=== PATIENT | female | born 1980 | race African-American/Black ===

== ENCOUNTER 2018-05-03 12:36 | Emergency (ER) | payer MEDICAID, OTHER ==
[~2018-05-03] VITALS: Ht 167.6 cm; Wt 85.0 kg
[2018-05-03] MEDS ORDERED: SODIUM CHLORIDE 0.9% 1,000 ML IV ONE (13:11)
[2018-05-03 14:50] LABS: BASOPHILS % 0.6 % (0.0-2.0); HEMATOCRIT. 39.2 % (36.0-48.0); HEMOGLOBIN. 12.9 g/dL (12.0-16.0); LYMPHOCYTES % 14.2 % (20.0-50.0); MEAN CORPUSCULAR HEMOGLOBIN 29.5 pg (28.0-32.0); MEAN CORPUSCULAR VOLUME 89.7 fL (81.0-99.0); MEAN PLATELET VOLUME 10.7 fl (7.4-10.4); MONOCYTES % 12.7 % (2.0-8.0); NEUTROPHILS % 72.5 % (40.0-76.0); PLATELET 208 x1000/uL (130-400); RED BLOOD CELL COUNT 4.37 mill/uL (4.2-5.4); RED CELL DISTRIBUTION WIDTH 15.3 % (11.6-14.6)
[2018-05-03 14:54] LABS: CHLORIDE 104 mEq/L (98-107)
[2018-05-03 15:08] LABS: HCG SCREEN NEGATIVE
[2018-05-03 15:15] LABS: CLARITY URINE CLOUDY (CLEAR); COLOR URINE YELLOW (YELLOW); KETONES URINE NEGATIVE (NEGATIVE); LEUKOCYTE ESTERASE URINE 3+ (NEGATIVE); NITRITE URINE NEGATIVE (NEGATIVE); OCCULT BLOOD URINE NEGATIVE (NEGATIVE); PROTEIN URINE NEGATIVE (NEGATIVE); SPECIFIC GRAVITY URINE 1.006 (1.005-1.030); UROBILINOGEN URINE 0.2 E.U./dL (0.2-1.0)
[2018-05-03] MEDS ORDERED: CEFTRIAXONE 2 G PREMIX 50 ML IV NR (15:45)
[2018-05-03] MEDS ORDERED: POTASSIUM CHLORIDE 20MEQ TABLET SR PO NR (15:45)
[2018-05-03 18:07] VITALS: BP 136/83
== END 2018-05-03 18:09 | disposition home or self-care (01) ==
LOC: ER 12:54
DX: N39.0 Urinary tract infection, site not specified (principal); E86.0 Dehydration; R55 Syncope and collapse; R11.2 Nausea with vomiting, unspecified
CPT/HCPCS: 36415; 71045; 80053; 81003; 81025; 84703; 85025; 93005; 96361; 96365; 99284; J0696; J7030

== ENCOUNTER 2025-04-21 13:15 | Inpatient (IN) | payer OTHER ==
[~2025-04-21] VITALS: Ht 162.6 cm; Wt 95.3 kg
[2025-04-21 13:37] VITALS: O2SAT 99
[2025-04-21 14:14] LABS: HEMATOCRIT. 38.2 % (36.0-48.0); HEMOGLOBIN. 12.3 g/dL (12.0-16.0); MEAN PLATELET VOLUME 11.0 fl (7.4-10.4); PLATELET 253 x1000/uL (130-400); RED BLOOD CELL COUNT 4.35 mill/uL (4.2-5.4); RED CELL DISTRIBUTION WIDTH 15.7 % (11.6-14.6)
[2025-04-21 14:28] LABS: HCG SCREEN NEGATIVE
[2025-04-21 14:32] LABS: CREATININE 0.9 mg/dL (0.6-1.0); UREA NITROGEN BLOOD 8 mg/dL (9-23)
[2025-04-21 14:34] LABS: ASPARTATE AMINOTRANSFERASE 15 IU/L (<34); BILIRUBIN DIRECT 0.2 mg/dL (<=3.0); BILIRUBIN TOTAL 0.8 mg/dL (0.1-1.0); PROTEIN TOTAL 7.9 g/dL (6.0-8.3)
[2025-04-21] MEDS: SODIUM CHLORIDE 0.9% 1,000 ML IV ONE (15:26)
[2025-04-21] MEDS: CEFTRIAXONE 1GM/50ML 50 ML IV ONE (15:26)
[2025-04-21] MEDS: ONDANSETRON HCL 4MG/2ML INJ IV ONE (15:26)
[2025-04-21] MEDS: MORPHINE SULFATE 4 MG/ML INJ (FOR IV/IM USE) IV ONE (15:26)
[2025-04-21 15:35] LABS: LYMPHOCYTES % MANUAL 8.0 % (20.0-60.0); MONOCYTES % MANUAL 7.0 % (2.0-8.0); NEUTROPHILS % MANUAL 85.0 % (45.0-75.0); PLATELET ESTIMATE NORMAL
[2025-04-21 15:39] LABS: CLARITY URINE CLOUDY (CLEAR); COLOR URINE DARK YELLOW (YELLOW); GLUCOSE URINE NEGATIVE (NEGATIVE); KETONES URINE 2+ (NEGATIVE); LEUKOCYTE ESTERASE URINE 2+ (NEGATIVE); NITRITE URINE NEGATIVE (NEGATIVE); OCCULT BLOOD URINE 2+ (NEGATIVE); PH URINE 5.5 (4.5-8.0); PROTEIN URINE 2+ (NEGATIVE); SPECIFIC GRAVITY URINE 1.027 (1.005-1.030); UROBILINOGEN URINE 1.0 E.U./dL (0.2-1.0)
[2025-04-21 16:06] LABS: INR 1.2
[2025-04-21 16:29] LABS: WBC URINE 25-50 /hpf (0-2)
[2025-04-21 16:30] LABS: RBC URINE 25-50 /hpf (0-2); SQUAMOUS EPITHELIAL CELL URINE 3+ /lpf (RARE/1+)
[2025-04-21 16:31] LABS: BACTERIA URINE 3+
[2025-04-21] MEDS: KETOROLAC 15MG/ML VIAL IV ONE ×2 (19:07→21:05)
[2025-04-21] MEDS ORDERED: MAGNESIUM/ALUMINUM HYDROXIDE/SIMETHICONE 30ML UDC PO PRN (23:15)
[2025-04-21] MEDS ORDERED: CLONIDINE 0.1MG TABLET PO PRN (23:15)
[2025-04-21] MEDS ORDERED: MORPHINE SULFATE 4 MG/ML INJ (FOR IV/IM USE) IV PRN (23:15)
[2025-04-21] MEDS ORDERED: ONDANSETRON HCL 4MG/2ML INJ IV PRN (23:15)
[2025-04-21] MEDS ORDERED: ACETAMINOPHEN 325MG TABLET PO PRN ×2 (23:15)
[2025-04-21] MEDS ORDERED: KETOROLAC 30MG/ML VIAL IV PRN (23:15)
[2025-04-21] MEDS ORDERED: ZOLPIDEM TARTRATE 5MG TABLET PO PRN (23:15)
[2025-04-21] MEDS ORDERED: DIPHENHYDRAMINE 50MG/ML VIAL IV PRN (23:15)
[2025-04-21] MEDS: SODIUM CHLORIDE 0.9% 1,000 ML IV SCH (23:15)
[2025-04-22] VITALS (7 sets, daily range): BP systolic 137–160; BP diastolic 84–93; PULSE 60–93; RESP 16–20; TEMP 36.3–36.7; O2SAT 100
[2025-04-22] MEDS ORDERED: LEVOFLOXACIN 750MG PREMIX 150 ML IV SCH
[2025-04-22] MEDS: LEVOFLOXACIN 750MG PREMIX 150 ML IV SCH (03:04)
[2025-04-22 08:20] LABS: BASOPHILS % 1.2 % (0.0-2.0); EOSINOPHILS % 0.4 % (0.0-5.0); HEMATOCRIT. 36.1 % (36.0-48.0); HEMOGLOBIN. 11.7 g/dL (12.0-16.0); LYMPHOCYTES % 12.3 % (20.0-50.0); MEAN PLATELET VOLUME 10.7 fl (7.4-10.4); MONOCYTES % 6.8 % (2.0-8.0); NEUTROPHILS % 79.3 % (40.0-76.0); PLATELET 225 x1000/uL (130-400); RED BLOOD CELL COUNT 4.09 mill/uL (4.2-5.4); RED CELL DISTRIBUTION WIDTH 15.7 % (11.6-14.6)
[2025-04-22 08:36] LABS: CREATININE 0.8 mg/dL (0.6-1.0)
[2025-04-22 08:37] LABS: UREA NITROGEN BLOOD 8 mg/dL (9-23)
[2025-04-22] MEDS: FAMOTIDINE 20MG/2ML VIAL IV SCH (09:22)
[2025-04-22] MEDS: ENOXAPARIN 30MG/0.3ML SYR SUBCUT SCH (09:23)
== END 2025-04-22 19:30 | disposition short-term general hospital (02) | DRG 872 ==
LOC: ER 13:15 → 6EST 21:09 → EDBEDREQTM 22:39 → EDBEDREQ 22:39 → ENRESERV 23:19
PROVIDERS: ADMIT Internal Medicine; ATTEND Internal Medicine
DX: A41.9 Sepsis, unspecified organism (principal); E66.01 Morbid (severe) obesity due to excess calories; N39.0 Urinary tract infection, site not specified; K52.9 Noninfective gastroenteritis and colitis, unspecified; Z68.36 Body mass index [BMI] 36.0-36.9, adult
CPT/HCPCS: 36415; 74176; 80048; 80076; 81003; 83605; 84145; 84703; 85025; 96365; 96375; 99291; A4606; J0696; J1308; J1650; J1885; J1956; J2270; J2405; J7030